=== PATIENT | female | born 1970 | race African-American/Black ===

== ENCOUNTER → 2016-07-27 | Outpatient (CLI) | payer BC ==
--- NOTE | 2016-07-28 09:26 | XCELERA REPORT ---
[address] [address] Transthoracic Echocardiogram Report Name: ELOY VILCHIS Age: 45 yrs Gender: Female : 1970 Patient Status: Outpatient Patient Location: [facility] Study Date: 07/27/2016 08:40 AM Height: 64 in Weight: 155 lb BSA: 1.8 m2 Procedure: A complete two-dimensional transthoracic echocardiogram was performed (2D, M-mode, spectral and color flow Doppler). The study was technically adequate with some images being suboptimal in quality. Reason For Study: CP Ordering Physician: SUSAN THORNTON PA-C Performed By: Yennifer Kiser Interpretation Summary The left ventricular ejection fraction is normal. There is borderline concentric left ventricular hypertrophy. The left ventricle is grossly normal size. Doppler measurements suggest impaired left ventricular relaxation, which is associated with grade I/IV or mild diastolic dysfunction Wall motion cannot be accurately commented on, but no definite regional wall motion abnormalities noted. The right ventricular systolic function is normal. The right atrium is normal in size The left atrial size is normal. There is no mitral valve stenosis. There is a trace amount of mitral regurgitation There is no aortic valve stenosis No aortic regurgitation is present. There is a trace or physiologic amount of tricuspid regurgitation Tricuspid regurgitation jet envelope not well defined to measure RV systolic pressure accurately. The aortic root is not well visualized but is probably normal size. The inferior vena cava appeared normal and decreased > 50% with respiration (RAP 5-10 mmHg) There is no pericardial effusion. MMode/2D Measurements \T\ Calculations RVDd: 2.5 cm LVIDd: 4.3 cm FS: 31.3 % Ao root diam: 2.3 cm IVSd: 0.97 cm LVIDs: 2.9 cm EDV(Teich): 81.6 ml LVPWd: 0.99 cm ESV(Teich): 33.1 ml Ao root area: 4.0 cm2 EF(Teich): 59.5 % LA dimension: 3.1 cm Doppler Measurements \T\ Calculations MV E max wally: MV P1/2t max wally: Ao V2 max: LV V1 max P.5 cm/sec 60.9 cm/sec 102.1 cm/sec 2.7 mmHg MV A max wally: MV P1/2t: 66.8 msec Ao max PG: LV V1 max: 77.5 cm/sec 4.2 mmHg 82.1 cm/sec MV E/A: 0.78 MVA(P1/2t): 3.3 cm2 MV dec slope: 266.9 cm/sec2 MV dec time: 0.24 sec PA V2 max: 74.5 cm/sec PA max P.2 mmHg Left Ventricle The left ventricle is grossly normal size. There is borderline concentric left ventricular hypertrophy. The left ventricular ejection fraction is normal. Doppler measurements suggest impaired left ventricular relaxation, which is associated with grade I/IV or mild diastolic dysfunction. Wall motion cannot be accurately commented on, but no definite regional wall motion abnormalities noted. Right Ventricle The right ventricle is grossly normal size. There is normal right ventricular wall thickness. The right ventricular systolic function is normal. Atria The right atrium is normal in size. The left atrial size is normal. Interarterial septum not well visualized and not well dopplered. Cannot comment on ASD/PFO presence. Mitral Valve The mitral valve is grossly normal. There is no mitral valve stenosis. There is a trace amount of mitral regurgitation. Aortic Valve The aortic valve is grossly normal. There is no aortic valve stenosis. No aortic regurgitation is present. Tricuspid Valve The tricuspid valve is not well visualized, but is grossly normal. There is no tricuspid stenosis. There is a trace or physiologic amount of tricuspid regurgitation. Tricuspid regurgitation jet envelope not well defined to measure RV systolic pressure accurately. Pulmonic Valve The pulmonic valve is not well visualized. Great Vessels The aortic root is not well visualized but is probably normal size. The inferior vena cava appeared normal and decreased > 50% with respiration (RAP 5-10 mmHg). Effusions There is no pericardial effusion. : SUSAN THORNTON PA-C > [facility]
== END ==
LOC: SP 08:18
PROVIDERS: ATTEND Physician Assistant Medical
DX: R07.9 Chest pain, unspecified (principal)
CPT/HCPCS: 36415; 80053; 82306; 82607; 82728; 82746; 83735; 84443; 85025; 86038; 86617; 86618; 86757; 87040; 93306

== ENCOUNTER → 2016-07-27 | Outpatient (CLI) | payer BC ==
[2016-07-27 11:14] LABS: HEMATOCRIT 25.9 % (36.0-47.0); HEMOGLOBIN 8.4 g/dL (12.0-15.5); HGB HCT DIFFERENCE -0.7; MEAN CORPUSCULAR HEMOGLOBIN 28.9 pg (27.0-33.4); MEAN CORPUSCULAR HGB CONC 32.6 g/dL (32.0-36.0); MEAN CORPUSCULAR VOLUME 89 fl (80-97); RED BLOOD COUNT 2.92 10^6/uL (3.72-5.28); RED CELL DISTRIBUTION WIDTH 14.1 % (11.5-14.0); WHITE BLOOD COUNT 3.1 10^3/uL (4.0-10.5)
[2016-07-27 11:43] LABS: BAND NEUTROPHILS % (MANUAL) 2 % (3-5); BASOPHILS % (MANUAL) 0 % (0-2); EOSINOPHILS % (MANUAL) 23 % (0-6); LYMPHOCYTES % (MANUAL) 3 % (13-45); TOTAL CELLS COUNTED 100
[2016-07-27 11:45] LABS: ANISOCYTOSIS SLIGHT; HYPOCHROMASIA SLIGHT; OVALOCYTES SLIGHT; POIKILOCYTOSIS SLIGHT; POLYCHROMASIA SLIGHT; TOXIC GRANULATION SLIGHT
[2016-07-27 11:54] LABS: ALANINE AMINOTRANSFERASE 78 U/L (9-52); ALKALINE PHOSPHATASE 82 U/L (38-126); ANION GAP 11 (5-19); ASPARTATE AMINO TRANSFERASE 97 U/L (14-36); BILIRUBIN,DIRECT 0.4 mg/dL (0.0-0.4); BILIRUBIN,TOTAL 0.5 mg/dL (0.2-1.3); BLOOD UREA NITROGEN 19 mg/dL (7-20); CALCIUM 9.3 mg/dL (8.4-10.2); CARBON DIOXIDE 30 mmol/L (22-30); CHLORIDE 102 mmol/L (98-107); CREATININE RESULT 0.79 mg/dL (0.52-1.25); GLUCOSE 90 mg/dL (75-110); MAGNESIUM 1.7 mg/dL (1.6-2.3); POTASSIUM 3.9 mmol/L (3.6-5.0); SODIUM 143.1 mmol/L (137-145); TOTAL PROTEIN 8.7 g/dL (6.3-8.2)
[2016-07-28 07:07] LABS: VITAMIN D 25-HYDROXY 25.9 ng/mL (30.0-100.0)
[2016-07-29 07:08] LABS: LYME DISEASE IGG AND IGM AB <0.91 ISR (0.00-0.90); ROCKY MTN SPOTTED FEV IGG EIA Negative (Negative)
== END ==
LOC: OD 09:31
PROVIDERS: ATTEND Physician Assistant Medical
DX: R53.83 Other fatigue (principal); R42 Dizziness and giddiness; R20.2 Paresthesia of skin; R51 Headache; R06.02 Shortness of breath; D72.1 Eosinophilia
CPT/HCPCS: 36415; 80053; 82306; 82607; 82728; 82746; 83735; 84443; 85025; 86038; 86617; 86618; 86757; 87040

== ENCOUNTER → 2016-07-29 | Outpatient (CLI) | payer BC ==
[2016-07-29 12:08] LABS: HEMATOCRIT 27.4 % (36.0-47.0); HGB HCT DIFFERENCE -0.4; MEAN CORPUSCULAR HEMOGLOBIN 29.1 pg (27.0-33.4); MEAN CORPUSCULAR HGB CONC 32.7 g/dL (32.0-36.0); MEAN CORPUSCULAR VOLUME 89 fl (80-97); RED BLOOD COUNT 3.07 10^6/uL (3.72-5.28); RED CELL DISTRIBUTION WIDTH 13.8 % (11.5-14.0)
[2016-07-29 12:44] LABS: BAND NEUTROPHILS % (MANUAL) 6 % (3-5); BASOPHILS % (MANUAL) 0 % (0-2); EOSINOPHILS % (MANUAL) 23 % (0-6); LYMPHOCYTES % (MANUAL) 4 % (13-45); TOTAL CELLS COUNTED 100
[2016-07-29 12:47] LABS: OVALOCYTES SLIGHT; POIKILOCYTOSIS SLIGHT
[2016-07-30 08:42] LABS: HEPATITIS C VIRUS AB <0.1 s/co ratio (0.0-0.9)
[2016-07-30 15:38] LABS: A/G RATIO 0.8 (0.7-1.7); ALBUMIN 2 3.7 g/dL (2.9-4.4); ALPHA-1-GLOBULIN 2 0.3 g/dL (0.0-0.4); GAMMA GLOBULIN 2.5 g/dL (0.4-1.8); PROTEIN TOTAL SERUM 8.4 g/dL (6.0-8.5)
[2016-07-30 16:39] LABS: HGB SOLUBILITY RESULT Negative (Negative)
[2016-07-31 12:52] LABS: CYTOMEGALOVIRUS IGG AB <0.60 U/mL (0.00-0.59); TRANSFERRIN 283 mg/dL (200-370)
== END ==
LOC: OD 10:29
PROVIDERS: ATTEND Physician Assistant Medical
DX: R94.5 Abnormal results of liver function studies (principal); R10.9 Unspecified abdominal pain; R53.83 Other fatigue; R87.89 Other abnormal findings in specimens from female genital organs; D72.1 Eosinophilia
CPT/HCPCS: 36415; 83020; 83540; 83550; 84165; 84466; 85025; 86644; 86803; 86804